=== PATIENT | female | born 1980 | race Hispanic/Latino ===

== ENCOUNTER 2018-04-10 10:07 | Emergency (ER) | payer SELFPAY ==
[~2018-04-10] VITALS: Ht 154.9 cm; Wt 52.0 kg
[~2018-04-10 10:07] MED LIST: KETOROLAC10 MG PO; NO; ULTRAM50 MG OR
[2018-04-10 10:42] LABS: URINE BILIRUBIN - DIPSTICK NEGATIVE (NEGATIVE); URINE BLOOD DIPSTICK MODERATE (NEGATIVE); URINE CLARITY TURBID; URINE COLOR YELLOW; URINE GLUCOSE - DIPSTICK NEGATIVE (NEGATIVE); URINE KETONE NEGATIVE (NEGATIVE); URINE LEUK ESTERASE MODERATE (NEGATIVE); URINE NITRITE - DIPSTICK NEGATIVE (Negative); URINE PROTEIN - DIPSTICK NEGATIVE (NEG-TRACE); URINE UROBILINOGEN - DIPSTICK 0.2 E.U./dL (0.2)
[2018-04-10 10:51] LABS: URINE BACTERIA FEW hpf; URINE RBC TNTC RBC/hpf (0-5); URINE SQUAMOUS EPITHELIAL CELL FEW EPI/hpf (0-FEW); URINE WBC TNTC WBC/hpf (0-5)
[2018-04-10 11:07] VITALS: BP 103/66
[2018-04-10] MEDS ORDERED: PYRIDIUM200 MG PO (11:07)
[2018-04-10] MEDS ORDERED: CIPROFLOXACN500 MG PO (11:07)
== END 2018-04-10 11:13 | disposition home or self-care (01) | DRG 690 ==
LOC: ED 10:07
PROVIDERS: Emergency Medicine
DX: N39.0 Urinary tract infection, site not specified (principal); B96.20 Unspecified Escherichia coli [E. coli] as the cause of diseases classified elsewhere

== ENCOUNTER 2019-12-12 | Emergency (ER) | payer SELFPAY ==
[~2019-12-12] MED LIST changes: +CIPROFLOXACN500 MG PO; +PYRIDIUM200 MG PO
[2019-12-12 18:01] LABS: HEMOGLOBIN 12.6 g/dl (12.0-16.0); IMMATURE GRANULOCYTES 0.2 % (0.0-5.0); MEAN CELL VOLUME 90.7 fL CALC (80.0-100.0); MEAN CORPUSCULAR HGB 30.1 pG CALC (26.0-32.0); MEAN CORPUSCULAR HGB CONC 33.2 g/dL CAL (32.0-36.0); NEUT# 7.06 thou/uL (2.00-7.15); RED BLOOD COUNT 4.19 mill/uL (4.20-5.60); RED CELL DISTRI WIDTH 13.1 % (11.5-15.5)
[2019-12-12 18:15] LABS: ALBUMIN 4.5 g/dL (3.2-5.0); ALKALINE PHOSPHATASE 74 u/l (38-126); ANION GAP 13 (6-22 (CALC)); BILIRUBIN, TOTAL 0.5 mg/dL (0.0-1.4); BUN 11 mg/dL (7-17); BUN/CREATININE RATIO 17 (12-20 (CALC)); CARBON DIOXIDE 26 mmol/l (22-30); CHLORIDE 100 mmol/l (95-108); CREATININE 0.7 mg/dL (0.5-1.0); GFR > 60 ML/MIN (>=60 (CALC)); GFR FOR AFR.AMER. > 60 ML/MIN (>=60 (CALC)); LIPASE 75 u/l (23-300); POTASSIUM 3.8 mmol/l (3.5-5.1); SGOT/AST 38 u/l (14-36); SODIUM 135 mmol/l (137-146); TOTAL PROTEIN 7.9 g/dL (6.3-8.2)
[2019-12-12 18:40] LABS: URINE BILIRUBIN - DIPSTICK NEGATIVE (NEGATIVE); URINE BLOOD DIPSTICK TRACE-INTACT (NEGATIVE); URINE COLOR YELLOW; URINE GLUCOSE - DIPSTICK NEGATIVE (NEGATIVE); URINE KETONE NEGATIVE (NEGATIVE); URINE LEUK ESTERASE NEGATIVE (NEGATIVE); URINE NITRITE - DIPSTICK NEGATIVE (Negative); URINE PROTEIN - DIPSTICK NEGATIVE (NEG-TRACE); URINE UROBILINOGEN - DIPSTICK 0.2 E.U./dL (0.2)
== END 2019-12-12 19:14 | disposition home or self-care (01) | DRG 392 ==
DX: K59.00 Constipation, unspecified (principal)

== ENCOUNTER 2022-05-09 12:08 | Emergency (ER) | payer OTHER ==
[2022-05-09] VITALS (7 sets, daily range): BP systolic 114–121; BP diastolic 67–75
[~2022-05-09] VITALS: Ht 154.9 cm; Wt 50.0 kg
[2022-05-09 12:46] LABS: HEMATOCRIT 35.7 % (37.0-47.0); HEMOGLOBIN 12.3 g/dl (12.0-16.0); IMMATURE GRANULOCYTES 0.4 % (0.0-5.0); MEAN CELL VOLUME 91.5 fL CALC (80.0-100.0); MEAN CORPUSCULAR HGB 31.5 pG CALC (26.0-32.0); MEAN CORPUSCULAR HGB CONC 34.5 g/dL CAL (32.0-36.0); NEUT# 3.99 thou/uL (2.00-7.15); RED BLOOD COUNT 3.9 mill/uL (4.20-5.60); RED CELL DISTRI WIDTH 12.5 % (11.5-15.5)
[2022-05-09 12:57] LABS: PROTHROMBIN TIME 9.7 SECONDS (9.0-12.5)
[2022-05-09 13:05] LABS: ALBUMIN 4.3 g/dL (3.2-5.0); ALKALINE PHOSPHATASE 79 u/l (38-126); ANION GAP 14 (6-22 (CALC)); BILIRUBIN, TOTAL 0.4 mg/dL (0.0-1.4); BUN 13 mg/dL (7-17); BUN/CREATININE RATIO 21 (12-20 (CALC)); CARBON DIOXIDE 22 mmol/l (22-30); CHLORIDE 103 mmol/l (95-108); CREATININE 0.6 mg/dL (0.5-1.0); ETHYL ALCOHOL 0 mg/dl (0-30); GFR FOR AFR.AMER. > 60 ML/MIN (>=60 (CALC)); GFR OTHER RACES > 60 ML/MIN (>=60 (CALC)); POTASSIUM 3.5 mmol/l (3.5-5.1); SGOT/AST 48 u/l (14-36); SODIUM 135 mmol/l (137-146); TOTAL PROTEIN 7.5 g/dL (6.3-8.2)
[2022-05-09 14:58] LABS: URINE BILIRUBIN - DIPSTICK NEGATIVE (NEGATIVE); URINE BLOOD DIPSTICK LARGE (NEGATIVE); URINE CLARITY CLEAR; URINE COLOR YELLOW; URINE GLUCOSE - DIPSTICK NEGATIVE (NEGATIVE); URINE KETONE NEGATIVE (NEGATIVE); URINE LEUK ESTERASE SMALL (Negative); URINE NITRITE - DIPSTICK NEGATIVE (Negative); URINE PH 5.5 (4.5-8.0); URINE PROTEIN - DIPSTICK NEGATIVE (NEG-TRACE); URINE SPECIFIC GRAVITY <=1.005; URINE UROBILINOGEN - DIPSTICK 0.2 E.U./dL (0.2)
[2022-05-09 15:06] LABS: URINE RBC 25-50 RBC/hpf (0-5); URINE SQUAMOUS EPITHELIAL CELL FEW EPI/hpf (0-FEW); URINE TRANSITIONAL EPI. CELLS RARE hpf
[2022-05-09] MEDS ORDERED: NAPROXEN500 MG PO (16:12)
[2022-05-09] MEDS ORDERED: METHOCARBAMOL500 MG PO (16:12)
== END 2022-05-09 16:23 | disposition home or self-care (01) | DRG 605 ==
LOC: ED 12:08
PROVIDERS: Nurse Practitioner
DX: S40.012A Contusion of left shoulder, initial encounter (principal); S30.1XXA Contusion of abdominal wall, initial encounter; V43.53XA Car driver injured in collision with pick-up truck in traffic accident, initial encounter; R55 Syncope and collapse
CPT/HCPCS: Q9967